=== PATIENT | male | born 1935 | race Caucasian/White ===

== ENCOUNTER 2017-11-22 09:23 | Emergency (ER) | payer MEDICARE ==
[~2017-11-22] VITALS: Ht 182.9 cm; Wt 83.9 kg
[~2017-11-22 09:23] MED LIST: ASPI81CH PO; ATOR20 PO; ATOR40TA PO; CEPH500 PO; Coumadin4 MG PO; FURO40 PO; HYDACE5325 PO; HYDR1TAB94 PO; ISOMON20 PO; LISI20 PO; Lopressor 25 mg25 MG PO; METO25 PO; METO25ER PO; MULVITMIND PO; NABU750 PO; NITR.4SL SL; TAMS.4ER PO; WARF2 PO; WARF4 PO; XARELTO20 MG PO; ZESTRIL40 MG PO
[2017-11-22 10:30] LABS: BASOPHILS ABSOLUTE AUTO 0.05 K/mm3 (0.00-0.23); BASOPHILS PERCENT AUTO 1 % (0-2); EOSINOPHILS ABSOLUTE AUTO 0.32 K/mm3 (0.00-0.68); EOSINOPHILS PERCENT AUTO 4 % (0-6); IMMATURE GRAN ABSOLUTE AUTO 0.03 K/mm3 (0.00-0.10); IMMATURE GRAN PERCENT AUTO 0 % (0-1); LYMPHOCYTES ABSOLUTE AUTO 1.04 K/mm3 (0.84-5.20); LYMPHOCYTES PERCENT AUTO 11 % (21-46); MONOCYTES ABSOLUTE AUTO 0.67 K/mm3 (0.16-1.47); MONOCYTES PERCENT AUTO 7 % (4-13); Mean Corpuscular HGB 30.9 pg (26.0-34.0); Mean Corpuscular HGB Conc 33.3 g/dL (31.5-36.5); Mean Corpuscular Volume 93 fL (80-100); Mean Platelet Volume 10.1 fL (9.1-12.4); NEUTROPHILS ABSOLUTE AUTO 7.09 K/mm3 (1.96-9.15); NEUTROPHILS PERCENT AUTO 77 % (41-73); Platelet Count 185 K/mm3 (150-400); RDW Coefficient Variation 14.7 % (11.7-14.2); RDW Standard Deviation 49.4 fL (35.1-46.3); Red Blood Cell Count 4.53 M/mm3 (4.30-5.90)
[2017-11-22 10:51] LABS: Alanine Aminotransfer (ALT/SGP 27 U/L (12-78); Albumin, Blood 3.5 g/dL (3.4-5.0); Albumin/Globulin Ratio 0.8 (0.8-1.8); Alk Phos 90 U/L (50-136); Anion Gap 7 mmol/L (6-16); Aspartate Aminotrans (AST/SGOT 24 U/L (12-37); Bilirubin, Total 1.5 mg/dL (0.1-1.0); Blood Urea Nitrogen 20 mg/dL (8-24); Bun/Creatinine Ratio 19.8 (12.0-20.0); CO2, Blood 25 mmol/L (21-32); Calcium, Blood 8.5 mg/dL (8.5-10.1); Chloride, Blood 107 mmol/L (98-108); Creatinine, Blood 1.01 mg/dL (0.60-1.20); Globulin, Blood 4.4 g/dL (2.2-4.0); Glomerular Filtration Rate >60 (60-); Glucose, Blood 104 mg/dL (70-99); Potassium, Blood 3.9 mmol/L (3.5-5.5); Sodium, Blood 139 mmol/L (136-145); Total Protein, Blood 7.9 g/dL (6.4-8.2); Troponin I 0.027 ng/mL (0.000-0.040)
[2017-11-22] MEDS ORDERED: K-Dur10 MEQ PO (13:12)
[2017-11-22] MEDS ORDERED: Lasix40 MG PO (13:12)
[2018-08-02] MEDS ORDERED: Lasix20 MG PO (20:37)
[2018-08-02] MEDS ORDERED: K-Dur10 MEQ PO (20:37)
[2018-08-22] MEDS ORDERED: FURO40 PO (14:59)
[2018-08-22] MEDS ORDERED: DOCU100 PO (15:00)
[2018-08-22] MEDS ORDERED: ATOR40TA PO (15:01)
[2018-08-22] MEDS ORDERED: NABU750 PO (15:01)
== END 2017-11-22 13:21 | disposition home or self-care (01) ==
LOC: ER 09:23
PROVIDERS: Emergency Medicine
DX: I11.0 Hypertensive heart disease with heart failure (principal); I50.9 Heart failure, unspecified; E78.00 Pure hypercholesterolemia, unspecified; Z96.653 Presence of artificial knee joint, bilateral; Z95.0 Presence of cardiac pacemaker; Z95.1 Presence of aortocoronary bypass graft; Z79.82 Long term (current) use of aspirin; Z79.899 Other long term (current) drug therapy
CPT/HCPCS: 36415; 71046; 80053; 83605; 83880; 84484; 85025; 93005; 93010; 96374; 99284; J1940

== ENCOUNTER 2018-03-04 09:23 | Observation (INO) | payer MEDICARE ==
[~2018-03-04] VITALS: Ht 177.8 cm; Wt 87.0 kg
[~2018-03-04 09:23] MED LIST changes: +K-Dur10 MEQ PO; +Lasix40 MG PO
[2018-03-04 11:04] LABS: Alanine Aminotransfer (ALT/SGP 25 U/L (12-78); Albumin, Blood 3.7 g/dL (3.4-5.0); Albumin/Globulin Ratio 0.9 (0.8-1.8); Alk Phos 121 U/L (50-136); Anion Gap 9 mmol/L (6-16); Aspartate Aminotrans (AST/SGOT 30 U/L (12-37); Bilirubin, Total 2.4 mg/dL (0.1-1.0); Blood Urea Nitrogen 30 mg/dL (8-24); CO2, Blood 21 mmol/L (21-32); Calcium, Blood 8.5 mg/dL (8.5-10.1); Chloride, Blood 111 mmol/L (98-108); Creatinine, Blood 1.11 mg/dL (0.60-1.20); Globulin, Blood 4.2 g/dL (2.2-4.0); Glomerular Filtration Rate >60 (60-); Glucose, Blood 106 mg/dL (70-99); Potassium, Blood 4.9 mmol/L (3.5-5.5); Sodium, Blood 141 mmol/L (136-145); Total Protein, Blood 7.9 g/dL (6.4-8.2); Troponin I 0.027 ng/mL (0.000-0.040)
[2018-03-04 11:07] LABS: BASOPHILS ABSOLUTE AUTO 0.04 K/mm3 (0.00-0.23); BASOPHILS PERCENT AUTO 1 % (0-2); EOSINOPHILS ABSOLUTE AUTO 0.15 K/mm3 (0.00-0.68); EOSINOPHILS PERCENT AUTO 2 % (0-6); Hematocrit 42.5 % (37.0-53.0); Hemoglobin 13.8 g/dL (13.5-17.5); IMMATURE GRAN ABSOLUTE AUTO 0.03 K/mm3 (0.00-0.10); IMMATURE GRAN PERCENT AUTO 0 % (0-1); LYMPHOCYTES ABSOLUTE AUTO 1.43 K/mm3 (0.84-5.20); LYMPHOCYTES PERCENT AUTO 17 % (21-46); MONOCYTES ABSOLUTE AUTO 0.75 K/mm3 (0.16-1.47); MONOCYTES PERCENT AUTO 9 % (4-13); Mean Corpuscular HGB 30.5 pg (26.0-34.0); Mean Corpuscular HGB Conc 32.5 g/dL (31.5-36.5); Mean Corpuscular Volume 94 fL (80-100); Mean Platelet Volume 10.7 fL (9.1-12.4); NEUTROPHILS ABSOLUTE AUTO 6.26 K/mm3 (1.96-9.15); NEUTROPHILS PERCENT AUTO 72 % (41-73); Platelet Count 130 K/mm3 (150-400); RDW Coefficient Variation 15.7 % (11.7-14.2); RDW Standard Deviation 54.2 fL (35.1-46.3); Red Blood Cell Count 4.52 M/mm3 (4.30-5.90); White Blood Cell Count 8.66 K/mm3 (4.00-11.30)
[2018-03-04] MEDS ORDERED: NABU750 PO (12:59)
[2018-03-04] MEDS ORDERED: TAMS.4ER PO (13:00)
[2018-03-04] MEDS ORDERED: XARELTO15 MG PO (13:00)
[2018-03-05 06:11] LABS: Anion Gap 9 mmol/L (6-16); Blood Urea Nitrogen 30 mg/dL (8-24); Bun/Creatinine Ratio 26.1 (12.0-20.0); CO2, Blood 25 mmol/L (21-32); Calcium, Blood 8.5 mg/dL (8.5-10.1); Chloride, Blood 106 mmol/L (98-108); Creatinine, Blood 1.15 mg/dL (0.60-1.20); Glomerular Filtration Rate >60 (60-); Glucose, Blood 97 mg/dL (70-99); Potassium, Blood 4.1 mmol/L (3.5-5.5); Sodium, Blood 140 mmol/L (136-145)
[2018-03-06 05:06] LABS: Albumin, Blood 3.3 g/dL (3.4-5.0); Anion Gap 11 mmol/L (6-16); Blood Urea Nitrogen 30 mg/dL (8-24); Bun/Creatinine Ratio 27.5 (12.0-20.0); CO2, Blood 24 mmol/L (21-32); Calcium, Blood 8.6 mg/dL (8.5-10.1); Chloride, Blood 105 mmol/L (98-108); Creatinine, Blood 1.09 mg/dL (0.60-1.20); Glomerular Filtration Rate >60 (60-); Glucose, Blood 102 mg/dL (70-99); Phosphorus, Blood 3.5 mg/dL (2.5-4.9); Potassium, Blood 4.1 mmol/L (3.5-5.5); Sodium, Blood 140 mmol/L (136-145)
[2018-03-06] MEDS ORDERED: TORSE20 PO (11:21)
[2018-03-06] MEDS ORDERED: METO25 PO (11:22)
[2018-03-06] MEDS ORDERED: SPIR25 PO (11:23)
[2018-03-06] MEDS ORDERED: TRAM50 PO (11:24)
== END 2018-03-06 13:54 | disposition home or self-care (01) ==
LOC: ER 09:23 → ERHOLD 09:24 → MEDS 09:24 → ENPENDDIS 03-06 10:31 → MEDS 03-06 13:54
PROVIDERS: Emergency Medicine; Internal Medicine
DX: I11.0 Hypertensive heart disease with heart failure (principal); I50.33 Acute on chronic diastolic (congestive) heart failure; I42.2 Other hypertrophic cardiomyopathy; I25.10 Atherosclerotic heart disease of native coronary artery without angina pectoris; E78.5 Hyperlipidemia, unspecified; M19.90 Unspecified osteoarthritis, unspecified site; K21.9 Gastro-esophageal reflux disease without esophagitis; E78.00 Pure hypercholesterolemia, unspecified; Z95.1 Presence of aortocoronary bypass graft; Z79.82 Long term (current) use of aspirin; Z79.899 Other long term (current) drug therapy; Z95.0 Presence of cardiac pacemaker
CPT/HCPCS: 36415; 71046; 80048; 80053; 80069; 83880; 84484; 85025; 93005; 93010; 96374; 99285; G0378; J1940

== ENCOUNTER 2018-09-04 09:45 | Day surgery (SDC) | payer MEDICARE ==
[~2018-09-04] VITALS: Ht 177.8 cm; Wt 76.4 kg
[~2018-09-04 09:45] MED LIST changes: +DOCU100 PO; +Lasix20 MG PO; +SPIR25 PO; +TORSE20 PO; +TRAM50 PO; +XARELTO15 MG PO
== END 2018-09-04 12:20 | disposition home or self-care (01) ==
LOC: ORSCSDS 09:45
PROVIDERS: Internal Medicine Gastroenterology
PROC: 0DBK8ZX Excision of Ascending Colon, Via Natural or Artificial Opening Endoscopic, Diagnostic (ICD-10-PCS; principal; 2018-09-04 11:00)
PROC: 0DBL8ZX Excision of Transverse Colon, Via Natural or Artificial Opening Endoscopic, Diagnostic (ICD-10-PCS; principal; 2018-09-04 11:00)
DX: Z12.11 Encounter for screening for malignant neoplasm of colon (principal); D12.2 Benign neoplasm of ascending colon; D12.3 Benign neoplasm of transverse colon; Z86.010 Personal history of colon polyps; K57.30 Diverticulosis of large intestine without perforation or abscess without bleeding; Z95.0 Presence of cardiac pacemaker; E78.00 Pure hypercholesterolemia, unspecified; I10 Essential (primary) hypertension; Z79.01 Long term (current) use of anticoagulants; Z79.82 Long term (current) use of aspirin; Z79.899 Other long term (current) drug therapy
CPT/HCPCS: 88305; J7120

== ENCOUNTER 2018-11-05 11:05 | Inpatient (IN) | payer MEDICARE ==
[~2018-11-05] VITALS: Ht 180.3 cm; Wt 82.2 kg
[~2018-11-05 11:05] MED LIST changes: +Daily Multiple1 EACH PO
[2018-11-05 11:45] LABS: PCO2 Arterial 31.4 mmHg (35-45); PO2 Arterial 68.4 mmHg (80-100); pH Blood Arterial 7.47 (7.35-7.45)
[2018-11-05 11:47] LABS: BASOPHILS ABSOLUTE AUTO 0.07 K/mm3 (0.00-0.23); BASOPHILS PERCENT AUTO 1 % (0-2); EOSINOPHILS PERCENT AUTO 3 % (0-6); Hematocrit 40.5 % (37.0-53.0); Hemoglobin 13.5 g/dL (13.5-17.5); IMMATURE GRAN ABSOLUTE AUTO 0.03 K/mm3 (0.00-0.10); IMMATURE GRAN PERCENT AUTO 0 % (0-1); LYMPHOCYTES ABSOLUTE AUTO 0.91 K/mm3 (0.84-5.20); LYMPHOCYTES PERCENT AUTO 10 % (21-46); MONOCYTES ABSOLUTE AUTO 0.61 K/mm3 (0.16-1.47); MONOCYTES PERCENT AUTO 6 % (4-13); Mean Corpuscular HGB 31.1 pg (26.0-34.0); Mean Corpuscular HGB Conc 33.3 g/dL (31.5-36.5); Mean Corpuscular Volume 93 fL (80-100); Mean Platelet Volume 9.7 fL (9.1-12.4); NEUTROPHILS ABSOLUTE AUTO 7.62 K/mm3 (1.96-9.15); NEUTROPHILS PERCENT AUTO 80 % (41-73); Platelet Count 176 K/mm3 (150-400); RDW Coefficient Variation 14.7 % (11.7-14.2); RDW Standard Deviation 50.1 fL (35.1-46.3); Red Blood Cell Count 4.34 M/mm3 (4.30-5.90); White Blood Cell Count 9.54 K/mm3 (4.00-11.30)
[2018-11-05 12:10] LABS: Alanine Aminotransfer (ALT/SGP 20 U/L (12-78); Albumin, Blood 3.5 g/dL (3.4-5.0); Albumin/Globulin Ratio 0.9 (0.8-1.8); Alk Phos 138 U/L (50-136); Anion Gap 7 mmol/L (6-16); Aspartate Aminotrans (AST/SGOT 23 U/L (12-37); Blood Urea Nitrogen 22 mg/dL (8-24); Bun/Creatinine Ratio 23.7 (12.0-20.0); CO2, Blood 26 mmol/L (21-32); Calcium, Blood 8.7 mg/dL (8.5-10.1); Chloride, Blood 108 mmol/L (98-108); Creatinine, Blood 0.93 mg/dL (0.60-1.20); Globulin, Blood 3.9 g/dL (2.2-4.0); Glomerular Filtration Rate >60 (60-); Glucose, Blood 106 mg/dL (70-99); Potassium, Blood 4.2 mmol/L (3.5-5.5); Sodium, Blood 141 mmol/L (136-145); Total Protein, Blood 7.4 g/dL (6.4-8.2); Troponin I 0.037 ng/mL (0.000-0.040)
[2018-11-05] MEDS ORDERED: K-Dur10 MEQ PO (13:09)
[2018-11-05] MEDS ORDERED: Lasix20 MG PO (13:09)
--- NOTE | 2018-11-05 18:54 | NUR ---
ADMITTING TO RM 329 FROM THE ER. HE IS A LITTLE SOB WITH ACTIVITY. NO CP. MILD UPPER ABD PAIN. HAD SURGERY 2 WEEKS AGO TO PUT BACK HIS COLOSTOMY. INCISION HEALING WELL WITH 2 STERI STRIPS LEFT. HE HAD A BM TODAY DOWN IN ER. IT WAS SOFT. AM TROP NEGATIVE. CONSULT JUST CALLED TO .
--- NOTE | 2018-11-06 04:59 | NUR ---
SHIFT SUMMARY THE PATIENT PRESENTED THIS SHIFT WITH LUNGS THAT WERE DIM AT THE BASES, A&O X4, AND WITH VITALS WNL. THE PATIENT IS ON TELE AND IS 100% PACED AT 60 BPM. THE PATIENT HAS NOT SLEPT MUCH TONIGHT. MOVING FROM BED TO CHAIR AND BACK AGAIN. THE PATIENT HAS BEEN NPO SINCE MIDNIGHT PRE DR. ANAM VILLAGOMEZ, FOR A POSSIBLE PROCEDURE IN THE MORNING. THE PATIENT COMPLAINED OF SOB, WITH NORMAL STATURATION, BUT HAD 2 LITERS OF O2 VIA N/C PUT ON FOR COMFORT. THE PATIENT IS TRYING TO SLEEP AT THIS TOME, WILL CONTINUE TO MONITOR.
[2018-11-06 06:05] LABS: Anion Gap 9 mmol/L (6-16); Blood Urea Nitrogen 25 mg/dL (8-24); Bun/Creatinine Ratio 25.1 (12.0-20.0); CO2, Blood 23 mmol/L (21-32); Calcium, Blood 8.9 mg/dL (8.5-10.1); Chloride, Blood 107 mmol/L (98-108); Glomerular Filtration Rate >60 (60-); Glucose, Blood 102 mg/dL (70-99); Sodium, Blood 139 mmol/L (136-145)
--- NOTE | 2018-11-06 07:07 | NUR ---
ASSUMED CARE: PT SITTING UPRIGHT AT SIDE OF THE BED. ASKING WHEN ANGIO IS SUPPOSED TO BE. CALL TO HEART CENTER. NOT ON SCHEDULE AT THIS TIME. STAFF IN HEART CENTER TO DETERMINE FURTHER AND GET BACK TO ME. NO FURTHER NEEDS OR CONCERNS AT THIS TIME
--- NOTE | 2018-11-06 10:17 | NUR ---
PT'S DAUGHTER HAS BEEN NOTIFIED THAT PROCEDURE WILL BE TODAY BUT UNSURE ON TIME YET. CALL TO HEART CENTER IN ATTEMPT TO GET TIME BUT NO RESPONSE OF YET
--- NOTE | 2018-11-06 10:47 | NUR ---
PT TAKEN TO INFRASTRUCTURE ENGINEER. CALL TO DAUGHTER TO MAKE HER AWARE. HOUSEKEEPING TOOK PT'S BELONGINGS TO INFRASTRUCTURE ENGINEER. WAITING TO HEAR ROOM PLACEMENT TO GIVE REPORT TO CRITICAL CARE NURSE.
--- NOTE | 2018-11-06 12:35 | NUR ---
REPORT CALLED TO QING RN. PT'S DAUGHTER AWARE OF PT BEING TRANSFERRED TO ROOM PCU 12.
--- NOTE | 2018-11-06 13:25 | NUR ---
PT IN RECOVERY AT HEART CENTER, AWAITING ICU BED. PT WITH SHEATH IN PLACE TO RIGHT GROIN. SURROUNDING AREA SOFT, NO BLEEDING OR SWELLING NOTED. RIGHT LEG PWD. NITRO GTTS INFUSING AT ORDERED RATE. PT TOLERATING WELL. B/P REMAINS ELEVATED IN 150'S SYSTOLIC. DAUGHTER AT BEDSIDE AT THIS TIME.
--- NOTE | 2018-11-06 14:48 | NUR ---
PT HAS VOIDED MULTIPLE TIMES WITHOUT DIFFICULTY. AWAITING SHEATH PULL. MD IN TO REVIEW CHART.
--- NOTE | 2018-11-06 16:10 | NUR ---
ARRIVAL TO ICU 1540 - PT ARRIVES TO ICU AT THIS TIME. HE IS A/O X3, DENIES PAIN. R GROIN SITE IS CLEAN AND DRY WITH DRY AND INTACT DRESSING. NO SURROUNDING HEMATOMA. PT EDUCATED ON NEED TO KEEP R LEG STRAIGHT AND HOLD PRESSURE IF HE NEEDS TO RAISE HEAD. PEDAL PULSES PALPABLE. ARRIVES WITH NITROGLYCERIN GTT INFUSING AT 40 MCG AND TITRATING DOWN. BP 142/69. FAMILY BEDSIDE. WILL CONTINUE TO MONTIOR.
--- NOTE | 2018-11-06 17:39 | NUR ---
SHIFT SUMMARY 1540 - PT ARRIVED FROM [facility]ART [facility]. R GROIN SITE REMAINS CLEAN AND DRY WITH NO OOZING OR HEMATOMA. PT HAS REMAINED FLAT SINCE ARRIVAL AND WILL REMAIN FLAT UNTIL 1929. TYLENOL PO GIVEN FOR C/O BACK PAIN. ATE FINGER FOODS WITHOUT DIFFICULTY. 1739 - NITRO GTT TURNED OFF AT THIS TIME. CYNDIE 120S/60S. WILL CONTINUE TO MONITOR. WILL GIVE BEDSIDE, HANDOFF REPORT TO NOC RN.
--- NOTE | 2018-11-06 20:00 | NUR ---
DURING SHIFT HANDOFF, PT CALLED, CO "HAVING ANOTHER ONE OF THOSE SPELLS" AND REQUESTED O2. SATS NOTED 97% ON RA. HOB IS SL ELEVATED. O2 PLACED FOR PT COMFORT & WILL CONT TO MONITOR. DENIES PAIN. R GROIN SITE CONT SOFT, NO BLEEDING, DRSG CDI. FEET WARM, PPP. WILL CONT TO MONITOR SITE ALSO.
--- NOTE | 2018-11-06 22:30 | NUR ---
DANGLED AT BEDSIDE & THEN STANDING W MIMIMAL ASSIST. R GROIN CONT STABLE. REQUESTED ASSIST FOR BM, NO STOOL, PASSING FLATUS. NO SOB W EXERTION. REQUESTING MED FOR SLEEP. DISCUSSED PLAN FOR CARDIAC STRESS TESTING IN AM. PT REFERS TO FAMILY W LOVING TERMS, STATES HIS HAS BEEN IN HOSPICE CARE.
--- NOTE | 2018-11-07 | NUR ---
MED W RESTORIL 7.5MG FOR SLEEP, HAS CONT TO VOID SM AMTS OF MORENO URINE. R GROIN SITE CONT STABLE. VSS. PT HAD SNACK W EVENING MEDS, NPO NOW W SIPS WATER FOR ORAL COMFORT. WILL CONT TO MONITOR.
--- NOTE | 2018-11-07 04:00 | NUR ---
PT HAS BEEN UP SEVERAL TIMES TO BSC USING WALKER & SB ASSIST. PT IS HAVING LIQUID BILEOUS STOOL, ORANGE/WALKER COLOR. POSS RX FROM [facility]?? NO OTHER CHANGES.
--- NOTE | 2018-11-07 06:00 | NUR ---
CONT TO HAVE FLATUS & LIQUID STOOL. PT IS TIRED, BUT NO CO SOB OR EXERTION NOTED WHEN UP TO BSC. NOT WANTING O2 PER NC, SATS MID 90'S. CONT PACED RHYTHM W UNDERLYING FLUTTER. R GROIN CONT STABLE. HAS BEEN USING CALL LIGHT APPROPRIATELY.
[2018-11-07 06:59] LABS: BASOPHILS ABSOLUTE AUTO 0.03 K/mm3 (0.00-0.23); BASOPHILS PERCENT AUTO 0 % (0-2); EOSINOPHILS PERCENT AUTO 4 % (0-6); Hematocrit 45.4 % (37.0-53.0); Hemoglobin 14.8 g/dL (13.5-17.5); IMMATURE GRAN ABSOLUTE AUTO 0.04 K/mm3 (0.00-0.10); IMMATURE GRAN PERCENT AUTO 0 % (0-1); LYMPHOCYTES ABSOLUTE AUTO 0.19 K/mm3 (0.84-5.20); LYMPHOCYTES PERCENT AUTO 2 % (21-46); MONOCYTES ABSOLUTE AUTO 0.44 K/mm3 (0.16-1.47); MONOCYTES PERCENT AUTO 4 % (4-13); Mean Corpuscular HGB 30.7 pg (26.0-34.0); Mean Corpuscular HGB Conc 32.6 g/dL (31.5-36.5); Mean Corpuscular Volume 94 fL (80-100); Mean Platelet Volume 9.8 fL (9.1-12.4); NEUTROPHILS ABSOLUTE AUTO 9.59 K/mm3 (1.96-9.15); NEUTROPHILS PERCENT AUTO 90 % (41-73); Platelet Count 174 K/mm3 (150-400); RDW Standard Deviation 51.7 fL (35.1-46.3); Red Blood Cell Count 4.82 M/mm3 (4.30-5.90); White Blood Cell Count 10.69 K/mm3 (4.00-11.30)
[2018-11-07 07:19] LABS: Anion Gap 9 mmol/L (6-16); Blood Urea Nitrogen 27 mg/dL (8-24); CO2, Blood 24 mmol/L (21-32); Calcium, Blood 8.6 mg/dL (8.5-10.1); Chloride, Blood 108 mmol/L (98-108); Glomerular Filtration Rate >60 (60-); Glucose, Blood 118 mg/dL (70-99); Potassium, Blood 3.8 mmol/L (3.5-5.5); Sodium, Blood 141 mmol/L (136-145)
--- NOTE | 2018-11-07 07:43 | NUR ---
CARE ASSUMED CARE AND REPORT ASSUMED FROM STERLING NARAYAN. PT AWAKE AND UP TO BEDSIDE COMMODE. NOC RN STATES PT HAS BEEN UP MULTIPLE TIMES DURING NIGHT WITH DIARRHEA. STOOL IS PINK AND LIQUID; MD RAMIREZ AWARE. VSS. PACED RHYTHM, HR 60S. IV SALINE LOCKED. PT NPO EXCEPT FEW ICE CHIPS. CALL LIGHT WITHIN REACH. WILL CONTINUE TO MONITOR.
--- NOTE | 2018-11-07 18:46 | NUR ---
SHIFT SUMMARY/TRANSFER 1800 - PT SUDDENLY HAD EPISODE OF VOMITING WHILE EATING DINNER. DENIED ABD PAIN, DENIED NAUSEA. MD RAMIREZ CALLED, T. O. FOR ZOFRAN AND ABDOMINAL CT. PT THEN HAD EPISODE OF DIARRHEA. ATTEMPTED TO ARRANGE CT SCAN BUT NO AVAILIBILITY UNTIL 1900. PT TAKEN TO PCU AND BEDSIDE REPORT GIVEN TO HAZEL JOY. VSS ENTIRE SHIFT. PT TOLERATED LEXISCAN THIS AM AND INTO EARLY AFTERNOON.
--- NOTE | 2018-11-07 19:45 | NUR ---
ASSUMED CARE PT SITTING IN ROOM COMFORTBLY. PER DAY SHIFT PT ARRIVED AT SHIFT CHANGE REPORT TAKEN FROM ICU. PT HAD ANIGO ON 11/06 W/ R FEMORAL SITE. SITE IS SOFT NO OOZING NOTED TO AREA. SOME OLD DRIED BLOOD TO DRESSING. PT REPORTS TIRED, AND HAVING DIARRHEA SINCE YESTERDAY. PT REPORTS BACKSIDE IS VERY SORE FROM CONTINUOUS DIARRHEA. PT HAD A RECENT OSTOMY TAKE DOWN IN EXETER ON 10/17. SITE NOTED TO L ABD HEALING WELL W/ STERI STRIPS IN PLACE. RESP EVEN UNLABORED ON RA. SATS >92%. PT IS SBA TO RR AMB W/ 4WW. CALL LIT IN REACH.
--- NOTE | 2018-11-08 00:37 | NUR ---
DIARRHEA PT CONTINUES TO HAVE DIARRHEA AND IS C/O BLOOD TO ANUS. PINK CREAM APPLIED TO AREA FOR COMFORT. PROVIDER TO BE CALLED FOR MEDICATION FOR DIARRHEA.
[2018-11-08 04:03] LABS: Hematocrit 40.1 % (37.0-53.0); Hemoglobin 13.3 g/dL (13.5-17.5); Mean Corpuscular HGB 31.2 pg (26.0-34.0); Mean Corpuscular HGB Conc 33.2 g/dL (31.5-36.5); Mean Corpuscular Volume 94 fL (80-100); Mean Platelet Volume 9.9 fL (9.1-12.4); Platelet Count 155 K/mm3 (150-400); RDW Coefficient Variation 15.4 % (11.7-14.2); Red Blood Cell Count 4.26 M/mm3 (4.30-5.90); White Blood Cell Count 6.29 K/mm3 (4.00-11.30)
[2018-11-08 04:29] LABS: Anion Gap 9 mmol/L (6-16); Blood Urea Nitrogen 23 mg/dL (8-24); Bun/Creatinine Ratio 23.8 (12.0-20.0); CO2, Blood 20 mmol/L (21-32); Calcium, Blood 8.4 mg/dL (8.5-10.1); Chloride, Blood 111 mmol/L (98-108); Creatinine, Blood 0.97 mg/dL (0.60-1.20); Glomerular Filtration Rate >60 (60-); Glucose, Blood 115 mg/dL (70-99); Potassium, Blood 3.5 mmol/L (3.5-5.5); Sodium, Blood 140 mmol/L (136-145)
--- NOTE | 2018-11-08 05:54 | NUR ---
SHIFT SUMMARY PT SLEEPING IN ROOM COMFORTABLY. NO ACUTE CHANGES IN STATUS T/O NIGHT. PT REPORTS STILL HAVING DIARRHEA. PT HAS A RECENT COLOSTOMY REVERSAL ON 10/17. RESP EVEN UNLABORED ON RA W/ SATS >92%. PT ABLE TO AMBULATE IN ROOM W/ SBA AND 4WW. CALLS APPROPRIATELY.
--- NOTE | 2018-11-08 12:46 | NUR ---
Echocardiogram completed.
--- NOTE | 2018-11-08 17:56 | NUR ---
SHIFT SUMMARY PT ALERT AND ORIENTED. VS STABLE. PT HAD ECHO DONE TODAY. PT ABLE TO AMBULATE TO BATHROOM WITH FWW AND SBA. PT HAD MULTIPLE EPISODES OF LIQUID BM. PT'S BUTTOCKS IS RED WITH SMALL TEARS FROM WIPING. CREAM APPLIED TO SKIN AND DR RAMIREZ NOTIFIED. NEW ORDERS PROVIDED. FEMORAL SITE COVERED WITH DRESSING C/D/I. NO SIGNS/SYMPTOMS OF HEMATOMA OR BLEEDING. PT DENIES ANY PAIN. NO OTHER CHANGES SINCE INITIAL ASSESSMENT. WILL CONTINUE TO MONITOR AND REPORT TO ONCOMING RN. CALL LIGHT IN REACH.
--- NOTE | 2018-11-08 22:43 | NUR ---
PCU NIGHTSHIFT ASSUMED CARE OF PT APPROX. 1900. PT A&OX4. ASSESSMENT COMPLETED, VITAL SIGNS STABLE. PT UP IN CHAIR AT THIS TIME. PT REPORTS THAT DIAHREA HAS CONTINUED THROUGHOUT THE DAY AND WOULD LIKE TO CONTINUE TAKING IMMODIUM PER EMAR. PT ABLE TO USE FWW AND AMBULATE TO BATHROOM NEEDED W/ SBA. PT 100% PACED AT THIS TIME. CALL LIGHT IN REACH AND PT DENIES ANY NEEDS AT THIS TIME. WILL CONTINUE TO MONITOR.
--- NOTE | 2018-11-09 05:55 | NUR ---
SHIFT SUMMARY PT PLEASANT, COOPERATIVE, AND USES CALL LIGHT APPROPRIATELY. PT REMAINS A&OX4. ASSESSMENT FINDINGS REMAIN UNCHANGED. VITAL SIGNS REMAINS STABLE. PT ABLE TO AMBULATE TO BATHROOM WITH FWW AND SBA NEEDED AND TOLERATED WELL. PT HAD SEVERAL EPISODES OF DIAHREA. IMMODIUM GIVEN PER EMAR. BARRIERS CREAM PLACED ON SKIN ON BUTTOCKS TO PROTECT SKIN. PT SPENT SOME OF SHIFT SITTING UP IN CHAIR. PT CURRENLTY IN CHAIR. CALL LIGHT IN REACH AND PT DENIES ANY NEEDS AT THIS TIME. WILL CONTINUE TO MONITOR UNTIL HANDOFF TO DAYSHIFT RN.
[2018-11-09 06:03] LABS: Hematocrit 38.8 % (37.0-53.0); Hemoglobin 12.9 g/dL (13.5-17.5); Mean Corpuscular HGB 31.8 pg (26.0-34.0); Mean Corpuscular HGB Conc 33.2 g/dL (31.5-36.5); Mean Corpuscular Volume 96 fL (80-100); Platelet Count 148 K/mm3 (150-400); RDW Coefficient Variation 15.1 % (11.7-14.2); RDW Standard Deviation 52.6 fL (35.1-46.3); Red Blood Cell Count 4.06 M/mm3 (4.30-5.90); White Blood Cell Count 7.04 K/mm3 (4.00-11.30)
[2018-11-09 06:32] LABS: Anion Gap 8 mmol/L (6-16); Blood Urea Nitrogen 21 mg/dL (8-24); Bun/Creatinine Ratio 25.4 (12.0-20.0); CO2, Blood 19 mmol/L (21-32); Calcium, Blood 7.8 mg/dL (8.5-10.1); Chloride, Blood 111 mmol/L (98-108); Creatinine, Blood 0.83 mg/dL (0.60-1.20); Glomerular Filtration Rate >60 (60-); Glucose, Blood 90 mg/dL (70-99); Potassium, Blood 3.6 mmol/L (3.5-5.5); Sodium, Blood 138 mmol/L (136-145)
--- NOTE | 2018-11-09 10:16 | NUR ---
AM NOTE. ASSUMED CARE OF PT APROX 0700, PT IS A&Ox4, AND SBA IN THE ROOM. PT WAS ADMITTED DUE TO CHEST PAIN. PT IS S/P ANGIO W/NO INTERVENTIONS. PT DENIES ANY CHEST PAIN AT THIS TIME. CARDIOLOGY PROVIDER AND HOSPITAL PROVIDER IN THE ROOM THIS AM, PT IS TO D/C HOME TODAY. TELE INTACT, 100% PACED, PT'S BP 117/63, PT HAS 1+ EDEMA TO HIS BLE. PT L/S CLEAR T/O. BT PRESENT AND HYPERACTIVE, PT HAS COMPLAINTS OF DIARRHEA BUT STATES THIS HAS IMPROVED, PT WAS GIVEN PRN IMMODIUM. ABD IS SOFT AND NONTENDER TO PALP. CALL LIGHT IN REACH, PT IS UP IN RECLINER CHAIR AT THIS TIME. WILL CONTINUE TO MONITOR.
[2018-11-09] MEDS ORDERED: AMLO5 PO (10:28)
[2018-11-09] MEDS ORDERED: FURO20 PO (10:29)
[2018-11-09] MEDS ORDERED: LOPE2C PO (10:30)
[2018-11-09] MEDS ORDERED: KONSYL PSYLLIU3.4 GM PO (10:32)
[2018-11-09] MEDS ORDERED: SACC250C PO (10:32)
[2018-11-09] MEDS ORDERED: XARELTO20 MG PO (10:33)
--- NOTE | 2018-11-09 13:03 | NUR ---
PT D/C. PT WAS D/C'D HOME W/ALL BELONGINGS. D/C EDUCATION WAS PROVIDED TO PT AND FAMILY, PT AND FAMILY DENY ANY FURTHER QUESTIONS/COMMENTS OR CONCERNS. IV WAS D/C'D WNL. PT WAS TAKEN OUT IN W/C. MEDICATIONS WERE CALLED TO PT'S PHARMACY OF CHOICE. PT WAS GIVEN FOLLOW UP DIRECTIONS FOR HIS PCP AND CARDIOLOGY.
== END 2018-11-09 13:10 | disposition home or self-care (01) | DRG 281 ==
LOC: ER 11:05 → MEDS 11:06 → ERHOLD 11:06 → MEDS 17:42 → ICUW 11-06 13:02 → PCU 11-06 13:21 → ICUW 11-06 15:40 → PCU 11-07 18:43
PROVIDERS: Emergency Medicine; Internal Medicine; Internal Medicine Cardiovascular Disease; ADMIT Hospitalist
PROC: 4A023N7 Measurement of Cardiac Sampling and Pressure, Left Heart, Percutaneous Approach (ICD-10-PCS; principal; 2018-11-06)
PROC: B211YZZ Fluoroscopy of Multiple Coronary Arteries using Other Contrast (ICD-10-PCS; 2018-11-06)
DX: I25.10 Atherosclerotic heart disease of native coronary artery without angina pectoris (principal); I21.9 Acute myocardial infarction, unspecified; I50.32 Chronic diastolic (congestive) heart failure; K62.5 Hemorrhage of anus and rectum; I11.0 Hypertensive heart disease with heart failure; I48.2 Chronic atrial fibrillation; R19.7 Diarrhea, unspecified; I27.20 Pulmonary hypertension, unspecified; Z79.82 Long term (current) use of aspirin; Z95.0 Presence of cardiac pacemaker; Z95.5 Presence of coronary angioplasty implant and graft; Z96.653 Presence of artificial knee joint, bilateral
CPT/HCPCS: 36415; 36600; 71045; 74176; 78452; 80048; 80053; 82375; 82803; 83880; 84484; 85025; 85027; 87493; 93005; 93010; 93017; 93308; 93321; 93457; 99152; 99153; 99285-25; A9500; C1769; G0378; J0360; J0706; J1644; J1650; J1940; J2250; J2405; J2785; J3010; J7030; J7040; Q9967

== ENCOUNTER 2019-03-26 10:06 | Emergency (ER) | payer MEDICARE ==
[~2019-03-26] VITALS: Ht 180.3 cm; Wt 77.1 kg
[~2019-03-26 10:06] MED LIST changes: +AMLO5 PO; +FURO20 PO; +KONSYL PSYLLIU3.4 GM PO; +LOPE2C PO; +SACC250C PO
[2019-03-26 10:49] LABS: Source, Urine Clean Catch
[2019-03-26 10:53] LABS: Blood, Urine 2+ (Neg); Glucose Qualitative, Urine Neg (Neg); Ketones, Urine Neg (Neg); Leukocyte Esterase, Urine 1+ (Neg); Nitrite, Urine Neg (Neg); Protein, Urine 2+ (Neg); Specific Gravity, Urine 1.025 (1.003-1.022); Urobilinogen, Urine 1+ (Normal)
[2019-03-26 11:13] LABS: BASOPHILS ABSOLUTE AUTO 0.05 K/mm3 (0.00-0.23); BASOPHILS PERCENT AUTO 1 % (0-2); EOSINOPHILS ABSOLUTE AUTO 0.15 K/mm3 (0.00-0.68); EOSINOPHILS PERCENT AUTO 2 % (0-6); Hematocrit 41.4 % (37.0-53.0); Hemoglobin 13.5 g/dL (13.5-17.5); IMMATURE GRAN ABSOLUTE AUTO 0.04 K/mm3 (0.00-0.10); IMMATURE GRAN PERCENT AUTO 1 % (0-1); LYMPHOCYTES ABSOLUTE AUTO 0.94 K/mm3 (0.84-5.20); LYMPHOCYTES PERCENT AUTO 12 % (21-46); MONOCYTES ABSOLUTE AUTO 0.59 K/mm3 (0.16-1.47); MONOCYTES PERCENT AUTO 7 % (4-13); Mean Corpuscular HGB 29.7 pg (26.0-34.0); Mean Corpuscular HGB Conc 32.6 g/dL (31.5-36.5); Mean Corpuscular Volume 91 fL (80-100); Mean Platelet Volume 10.7 fL (9.1-12.4); NEUTROPHILS ABSOLUTE AUTO 6.27 K/mm3 (1.96-9.15); NEUTROPHILS PERCENT AUTO 78 % (41-73); Platelet Count 132 K/mm3 (150-400); RDW Coefficient Variation 15.1 % (11.7-14.2); RDW Standard Deviation 50.1 fL (35.1-46.3); Red Blood Cell Count 4.55 M/mm3 (4.30-5.90); White Blood Cell Count 8.04 K/mm3 (4.00-11.30)
[2019-03-26 11:21] LABS: Appearance, Urine Clear (Clear); Bilirubin, Urine 1+ (Neg); Color, Urine Yellow (P-Yellow)
[2019-03-26 11:22] LABS: Bacteria Many /hpf; Mucus Mod (0-Heavy); Squamous Epithelial Cells Rare /hpf (Few); White Blood Cells, Urine 0-2 /hpf (0-5)
[2019-03-26 11:23] LABS: Amorphous Light (0-Heavy)
[2019-03-26 11:28] LABS: Alanine Aminotransfer (ALT/SGP 16 U/L (12-78); Albumin, Blood 3.2 g/dL (3.4-5.0); Albumin/Globulin Ratio 0.9 (0.8-1.8); Alk Phos 123 U/L (50-136); Anion Gap 7 mmol/L (6-16); Aspartate Aminotrans (AST/SGOT 19 U/L (12-37); Bilirubin, Total 2.1 mg/dL (0.1-1.0); Blood Urea Nitrogen 23 mg/dL (8-24); Bun/Creatinine Ratio 22.1 (12.0-20.0); CO2, Blood 24 mmol/L (21-32); Calcium, Blood 8.1 mg/dL (8.5-10.1); Chloride, Blood 107 mmol/L (98-108); Creatinine, Blood 1.04 mg/dL (0.60-1.20); Globulin, Blood 3.5 g/dL (2.2-4.0); Glomerular Filtration Rate >60 (60-); Glucose, Blood 131 mg/dL (70-99); Potassium, Blood 4.1 mmol/L (3.5-5.5); Sodium, Blood 138 mmol/L (136-145); Total Protein, Blood 6.7 g/dL (6.4-8.2)
[2019-04-08] MEDS ORDERED: METO25 PO (15:23)
[2019-04-08] MEDS ORDERED: TAMS.4ER PO (15:23)
[2019-04-08] MEDS ORDERED: XARELTO20 MG PO (15:23)
[2019-04-08] MEDS ORDERED: FURO20 PO (15:24)
[2019-04-08] MEDS ORDERED: ZESTRIL40 MG PO (15:24)
[2019-04-08] MEDS ORDERED: MULTI VITAMIN1 EACH PO (15:24)
[2019-04-08] MEDS ORDERED: ATOR40TA PO (15:24)
[2019-04-08] MEDS ORDERED: Aspirin EC81 MG PO (15:24)
[2019-04-08] MEDS ORDERED: Colace100 MG PO (15:25)
[2019-04-08] MEDS ORDERED: Amlodipine Bes2.5 MG PO (15:25)
[2019-04-08] MEDS ORDERED: NABU750 PO (15:25)
[2019-04-08] MEDS ORDERED: Klor-Con 1010 MEQ PO (15:25)
[2019-04-08] MEDS ORDERED: Nitrostat0.4 MG SL (15:25)
== END 2019-03-26 12:06 | disposition home or self-care (01) ==
LOC: ER 10:06
PROVIDERS: Emergency Medicine
DX: R10.9 Unspecified abdominal pain (principal); R31.9 Hematuria, unspecified; N39.8 Other specified disorders of urinary system; E78.5 Hyperlipidemia, unspecified; I48.91 Unspecified atrial fibrillation; K21.9 Gastro-esophageal reflux disease without esophagitis; I25.10 Atherosclerotic heart disease of native coronary artery without angina pectoris; M19.90 Unspecified osteoarthritis, unspecified site; N40.0 Benign prostatic hyperplasia without lower urinary tract symptoms; I42.2 Other hypertrophic cardiomyopathy; I50.9 Heart failure, unspecified; I27.20 Pulmonary hypertension, unspecified; Z87.442 Personal history of urinary calculi; Z79.82 Long term (current) use of aspirin; Z79.899 Other long term (current) drug therapy; Z79.01 Long term (current) use of anticoagulants
CPT/HCPCS: 36415; 74176; 80053; 81001; 85025; 87086; 99284-25

== ENCOUNTER 2019-04-05 11:41 | Emergency (ER) | payer MEDICARE ==
[~2019-04-05] VITALS: Ht 182.9 cm; Wt 80.7 kg
[2019-04-05] MEDS ORDERED: ZESTRIL40 MG PO (12:35)
[2019-04-05] MEDS ORDERED: TEMA15 PO (12:35)
[2019-04-05] MEDS ORDERED: CEPH500 PO (13:18)
[2019-04-08] MEDS ORDERED: XARELTO20 MG PO (15:23)
[2019-04-08] MEDS ORDERED: METO25 PO (15:23)
[2019-04-08] MEDS ORDERED: TAMS.4ER PO (15:23)
[2019-04-08] MEDS ORDERED: Aspirin EC81 MG PO (15:24)
[2019-04-08] MEDS ORDERED: ATOR40TA PO (15:24)
[2019-04-08] MEDS ORDERED: MULTI VITAMIN1 EACH PO (15:24)
[2019-04-08] MEDS ORDERED: ZESTRIL40 MG PO (15:24)
[2019-04-08] MEDS ORDERED: FURO20 PO (15:24)
[2019-04-08] MEDS ORDERED: Colace100 MG PO (15:25)
[2019-04-08] MEDS ORDERED: NABU750 PO (15:25)
[2019-04-08] MEDS ORDERED: Amlodipine Bes2.5 MG PO (15:25)
[2019-04-08] MEDS ORDERED: Nitrostat0.4 MG SL (15:25)
[2019-04-08] MEDS ORDERED: Klor-Con 1010 MEQ PO (15:25)
== END 2019-04-05 15:50 | disposition home or self-care (01) ==
LOC: ER 11:41
DX: I48.91 Unspecified atrial fibrillation (principal); R04.0 Epistaxis; D68.9 Coagulation defect, unspecified; N40.0 Benign prostatic hyperplasia without lower urinary tract symptoms; I25.10 Atherosclerotic heart disease of native coronary artery without angina pectoris; E78.5 Hyperlipidemia, unspecified; K21.9 Gastro-esophageal reflux disease without esophagitis; Z95.1 Presence of aortocoronary bypass graft; Z87.891 Personal history of nicotine dependence
CPT/HCPCS: 30903; 99283-25

== ENCOUNTER 2020-01-10 17:27 | Emergency (ER) | payer MEDICARE ==
[~2020-01-10] VITALS: Ht 170.2 cm; Wt 83.5 kg
[~2020-01-10 17:27] MED LIST changes: +Amlodipine Bes2.5 MG PO; +Aspirin EC81 MG PO; +Colace100 MG PO; +Klor-Con 1010 MEQ PO; +MULTI VITAMIN1 EACH PO; +Nitrostat0.4 MG SL; +TEMA15 PO
[2020-01-10 18:20] LABS: BASOPHILS ABSOLUTE AUTO 0.04 K/mm3 (0.00-0.23); BASOPHILS PERCENT AUTO 1 % (0-2); EOSINOPHILS ABSOLUTE AUTO 0.42 K/mm3 (0.00-0.68); EOSINOPHILS PERCENT AUTO 5 % (0-6); Hematocrit 45.7 % (37.0-53.0); Hemoglobin 14.7 g/dL (13.5-17.5); IMMATURE GRAN ABSOLUTE AUTO 0.03 K/mm3 (0.00-0.10); IMMATURE GRAN PERCENT AUTO 0 % (0-1); LYMPHOCYTES ABSOLUTE AUTO 0.89 K/mm3 (0.84-5.20); LYMPHOCYTES PERCENT AUTO 11 % (21-46); MONOCYTES PERCENT AUTO 9 % (4-13); Mean Corpuscular HGB 29.9 pg (26.0-34.0); Mean Corpuscular HGB Conc 32.2 g/dL (31.5-36.5); Mean Corpuscular Volume 93 fL (80-100); Mean Platelet Volume 9.9 fL (9.1-12.4); NEUTROPHILS ABSOLUTE AUTO 5.98 K/mm3 (1.96-9.15); NEUTROPHILS PERCENT AUTO 74 % (41-73); Platelet Count 127 K/mm3 (150-400); RDW Coefficient Variation 16.7 % (11.7-14.2); RDW Standard Deviation 57.1 fL (35.1-46.3); Red Blood Cell Count 4.92 M/mm3 (4.30-5.90); White Blood Cell Count 8.06 K/mm3 (4.00-11.30)
[2020-01-10 18:41] LABS: Anion Gap 7 mmol/L (6-16); Blood Urea Nitrogen 35 mg/dL (8-24); Bun/Creatinine Ratio 37.6 (12.0-20.0); CO2, Blood 21 mmol/L (21-32); Calcium, Blood 8.3 mg/dL (8.5-10.1); Chloride, Blood 109 mmol/L (98-108); Creatinine, Blood 0.93 mg/dL (0.60-1.20); Glomerular Filtration Rate >60 (60-); Glucose, Blood 95 mg/dL (70-99); Potassium, Blood 4.8 mmol/L (3.5-5.5); Sodium, Blood 137 mmol/L (136-145); Troponin I 0.032 ng/mL (0.000-0.040)
== END 2020-01-10 20:43 | disposition home or self-care (01) ==
LOC: ER 17:27
PROVIDERS: Emergency Medicine
DX: I13.0 Hypertensive heart and chronic kidney disease with heart failure and stage 1 through stage 4 chronic kidney disease, or unspecified chronic kidney disease (principal); I50.30 Unspecified diastolic (congestive) heart failure; N18.9 Chronic kidney disease, unspecified; I25.10 Atherosclerotic heart disease of native coronary artery without angina pectoris; I48.91 Unspecified atrial fibrillation; Z79.899 Other long term (current) drug therapy; Z79.82 Long term (current) use of aspirin
CPT/HCPCS: 36415; 71045; 80048; 83880; 84484; 85025; 93005; 93010; 96374; 99285-25; J1940

== ENCOUNTER 2022-09-07 09:48 | Emergency (ER) | payer MEDICARE ==
[~2022-09-07] VITALS: Ht 177.8 cm; Wt 81.7 kg
[~2022-09-07 09:48] MED LIST changes: +CEFD300 PO; +CLOP75 PO; +ENTRESTO 24 MG1 EACH PO; +K-Dur20 MEQ PO; -Klor-Con 1010 MEQ PO; +LISINOPRIL2.5 MG PO; +METOPROLOL SUCC25 MG PO; +NITR100CA PO; -Nitrostat0.4 MG SL; +Norco 5-325 Ta1 EACH PO
[2022-09-07 10:52] LABS: Source, Urine Clean Catch
[2022-09-07 10:55] LABS: Bilirubin, Urine Neg (Neg); Blood, Urine Neg (Neg); Glucose Qualitative, Urine Neg (Neg); Ketones, Urine Neg (Neg); Leukocyte Esterase, Urine Neg (Neg); Nitrite, Urine Neg (Neg); Protein, Urine Neg (Neg); Urobilinogen, Urine NORM (Normal)
[2022-09-07 10:58] LABS: Appearance, Urine Clear (Clear); Color, Urine Yellow (P-Yellow)
[2022-09-07 11:06] LABS: BASOPHILS ABSOLUTE AUTO 0.04 K/mm3 (0.00-0.23); BASOPHILS PERCENT AUTO 0 % (0-2); EOSINOPHILS ABSOLUTE AUTO 0.41 K/mm3 (0.00-0.68); EOSINOPHILS PERCENT AUTO 4 % (0-6); Hematocrit 39.5 % (37.0-53.0); Hemoglobin 13.3 g/dL (13.5-17.5); IMMATURE GRAN ABSOLUTE AUTO 0.05 K/mm3 (0.00-0.10); IMMATURE GRAN PERCENT AUTO 1 % (0-1); LYMPHOCYTES ABSOLUTE AUTO 0.94 K/mm3 (0.84-5.20); LYMPHOCYTES PERCENT AUTO 10 % (21-46); MONOCYTES ABSOLUTE AUTO 0.92 K/mm3 (0.16-1.47); MONOCYTES PERCENT AUTO 9 % (4-13); Mean Corpuscular HGB 31.7 pg (26.0-34.0); Mean Corpuscular HGB Conc 33.7 g/dL (31.5-36.5); Mean Corpuscular Volume 94 fL (80-100); Mean Platelet Volume 9.3 fL (9.1-12.4); NEUTROPHILS ABSOLUTE AUTO 7.52 K/mm3 (1.96-9.15); NEUTROPHILS PERCENT AUTO 76 % (41-73); Platelet Count 183 K/mm3 (150-400); RDW Coefficient Variation 13.9 % (11.7-14.2); RDW Standard Deviation 47.9 fL (35.1-46.3); White Blood Cell Count 9.88 K/mm3 (4.00-11.30)
[2022-09-07 11:18] LABS: Albumin, Blood 2.8 g/dL (3.4-5.0); Albumin/Globulin Ratio 0.6 (0.8-1.8); Bilirubin, Total 1.4 mg/dL (0.1-1.0); Bun/Creatinine Ratio 35.4 (12.0-20.0); Calcium, Blood 8.7 mg/dL (8.5-10.1); Creatinine, Blood 1.78 mg/dL (0.60-1.20); Globulin, Blood 4.7 g/dL (2.2-4.0); Potassium, Blood 5.7 mmol/L (3.5-5.5); Total Protein, Blood 7.5 g/dL (6.4-8.2)
--- NOTE | 2022-09-07 14:05 | NUR ---
Pt in for pain and decreased ability to ambulate. Pt lega red and inflamed from knee down. legs shineya nd wooden. Pt complains of constant deep pain to right foot and deep ankle pain . States taking tylenol only. Pt not sleeping very well and fatigued, he still has a good appetite. denies nausea or constipation. He is cold all the time and feels anxious about not being able to bear weight on his right foot. Pt daughter spoke with pt primary physcian who is calling [facility]. Pt was on [facility] home health and used hospice for his . Spoke with patient about hospice care and what it could offer. Focus on reducing suffering and being in a cycle of ER visits and hosptial visits. Pt not wanting more care. Carefully discused living a comfortable life as long as he can. Pt very amendable encourged his to steer his own ship. If he did not want to stay on hospice nothing set in stone he can always take himself off. He responded will the that particular statement. We reviewed fanancial strategies of getting the care he needs. Will follow up with daughter.
== END 2022-09-07 13:58 | disposition home or self-care (01) ==
LOC: ER 09:48
PROVIDERS: Physician Assistant
DX: I83.018 Varicose veins of right lower extremity with ulcer other part of lower leg (principal); I83.028 Varicose veins of left lower extremity with ulcer other part of lower leg; I87.2 Venous insufficiency (chronic) (peripheral); R62.7 Adult failure to thrive; I10 Essential (primary) hypertension; Z95.1 Presence of aortocoronary bypass graft; Z95.0 Presence of cardiac pacemaker; Z79.899 Other long term (current) drug therapy; Z79.82 Long term (current) use of aspirin
CPT/HCPCS: 36415; 80053; 81003; 85025; 87070; 87075; 87077; 87147; 87186; 87205; 99283; A9270

== ENCOUNTER 2022-11-05 15:35 | Emergency (ER) | payer MEDICARE ==
[~2022-11-05] VITALS: Ht 182.9 cm; Wt 83.5 kg
[2022-11-05 15:56] LABS: BASOPHILS ABSOLUTE AUTO 0.05 K/mm3 (0.00-0.23); BASOPHILS PERCENT AUTO 0 % (0-2); EOSINOPHILS ABSOLUTE AUTO 0.24 K/mm3 (0.00-0.68); EOSINOPHILS PERCENT AUTO 2 % (0-6); Hematocrit 41.2 % (37.0-53.0); Hemoglobin 13.6 g/dL (13.5-17.5); IMMATURE GRAN ABSOLUTE AUTO 0.06 K/mm3 (0.00-0.10); IMMATURE GRAN PERCENT AUTO 1 % (0-1); LYMPHOCYTES ABSOLUTE AUTO 0.92 K/mm3 (0.84-5.20); LYMPHOCYTES PERCENT AUTO 8 % (21-46); MONOCYTES ABSOLUTE AUTO 1.12 K/mm3 (0.16-1.47); MONOCYTES PERCENT AUTO 10 % (4-13); Mean Corpuscular HGB 29.3 pg (26.0-34.0); Mean Corpuscular Volume 89 fL (80-100); Mean Platelet Volume 9.4 fL (9.1-12.4); NEUTROPHILS ABSOLUTE AUTO 9.38 K/mm3 (1.96-9.15); NEUTROPHILS PERCENT AUTO 80 % (41-73); Platelet Count 215 K/mm3 (150-400); RDW Coefficient Variation 16.9 % (11.7-14.2); RDW Standard Deviation 54.5 fL (35.1-46.3); Red Blood Cell Count 4.64 M/mm3 (4.30-5.90); White Blood Cell Count 11.77 K/mm3 (4.00-11.30)
[2022-11-05 16:28] LABS: Albumin, Blood 2.3 g/dL (3.4-5.0); Albumin/Globulin Ratio 0.6 (0.8-1.8); Bilirubin, Total 0.9 mg/dL (0.1-1.0); Calcium, Blood 8.3 mg/dL (8.5-10.1); Creatinine, Blood 1.77 mg/dL (0.60-1.20); Globulin, Blood 4.1 g/dL (2.2-4.0); Total Protein, Blood 6.4 g/dL (6.4-8.2)
[2022-11-05 19:05] LABS: Calcium, Ionized (POC) 1.09 mmol/L (1.10-1.46); Chloride (POC) 105 mmol/L (98-108); Creatinine (POC) 1.9 mg/dL (0.8-1.3); Glucose (ISTAT POC) 89 mg/dL (70-99); Hemoglobin (POC) 12.9 g/dL (13.5-17.5); Sodium (POC) 135 mmol/L (135-148); Total CO2 (POC) 21 mmol/L (21-32)
[2022-11-05] MEDS ORDERED: DOXY100 PO (19:24)
== END 2022-11-05 20:24 | disposition home or self-care (01) ==
LOC: ER 15:35
PROVIDERS: Student in an Organized Health Care Education/Training Program
DX: E87.5 Hyperkalemia (principal); J90 Pleural effusion, not elsewhere classified; I50.22 Chronic systolic (congestive) heart failure; I25.10 Atherosclerotic heart disease of native coronary artery without angina pectoris; L03.115 Cellulitis of right lower limb; E83.51 Hypocalcemia; N18.9 Chronic kidney disease, unspecified; Z79.82 Long term (current) use of aspirin; Z79.899 Other long term (current) drug therapy; Z95.0 Presence of cardiac pacemaker; Z95.1 Presence of aortocoronary bypass graft; Z96.653 Presence of artificial knee joint, bilateral
CPT/HCPCS: 71046; 73660; 80047; 80053; 83735; 83880; 84484; 85014; 85025; 93005; 93010; 94644; 94664; 96374; 96375; 99285-25; A9270; J1815; J1940; J7799

== ENCOUNTER → 2022-11-23 | Outpatient (CLI) | payer MEDICARE ==
[~2022-11-23] MED LIST changes: +DOXY100 PO
[2022-11-23 15:04] LABS: Bun/Creatinine Ratio 38.8 (12.0-20.0); Calcium, Blood 8.5 mg/dL (8.5-10.1); Creatinine, Blood 1.47 mg/dL (0.60-1.20); Potassium, Blood 5.1 mmol/L (3.5-5.5)
== END | disposition home or self-care (01) ==
LOC: LAB SHORT 10:50 → LAB 10:50
PROVIDERS: Legal Medicine
DX: I12.9 Hypertensive chronic kidney disease with stage 1 through stage 4 chronic kidney disease, or unspecified chronic kidney disease (principal); N18.9 Chronic kidney disease, unspecified
CPT/HCPCS: 80048

== ENCOUNTER 2022-12-13 20:32 | Inpatient (IN) | payer MEDICARE ==
[~2022-12-13] VITALS: Ht 182.9 cm; Wt 92.3 kg
[2022-12-13 21:17] LABS: Base Excess Venous 4.3 mmol/L; Bicarbonate Venous 26.1 mmol/L (24.0-30.0); PCO2 Venous 62.6 mmHg (38-42)
[2022-12-13 21:21] LABS: BASOPHILS ABSOLUTE AUTO 0.04 K/mm3 (0.00-0.23); BASOPHILS PERCENT AUTO 1 % (0-2); EOSINOPHILS ABSOLUTE AUTO 0.17 K/mm3 (0.00-0.68); EOSINOPHILS PERCENT AUTO 2 % (0-6); Hematocrit 40.9 % (37.0-53.0); Hemoglobin 12.9 g/dL (13.5-17.5); IMMATURE GRAN ABSOLUTE AUTO 0.02 K/mm3 (0.00-0.10); IMMATURE GRAN PERCENT AUTO 0 % (0-1); LYMPHOCYTES ABSOLUTE AUTO 0.84 K/mm3 (0.84-5.20); LYMPHOCYTES PERCENT AUTO 11 % (21-46); MONOCYTES ABSOLUTE AUTO 0.87 K/mm3 (0.16-1.47); MONOCYTES PERCENT AUTO 12 % (4-13); Mean Corpuscular HGB 26.3 pg (26.0-34.0); Mean Corpuscular HGB Conc 31.5 g/dL (31.5-36.5); Mean Corpuscular Volume 84 fL (80-100); Mean Platelet Volume 9.5 fL (9.1-12.4); NEUTROPHILS ABSOLUTE AUTO 5.52 K/mm3 (1.96-9.15); NEUTROPHILS PERCENT AUTO 74 % (41-73); Platelet Count 159 K/mm3 (150-400); RDW Coefficient Variation 16.9 % (11.7-14.2); RDW Standard Deviation 51.8 fL (35.1-46.3); White Blood Cell Count 7.46 K/mm3 (4.00-11.30)
[2022-12-13] MEDS ORDERED: CEPH500 PO (21:31)
[2022-12-13] MEDS ORDERED: PLAVIX75 MG PO (21:31)
[2022-12-13] MEDS ORDERED: [UNRECOGNIZED DRUG - CODE] PO (21:32)
[2022-12-13] MEDS ORDERED: TEMAZEPAM1511 PO (21:32)
[2022-12-13 21:56] LABS: Albumin, Blood 2.1 g/dL (3.4-5.0); Albumin/Globulin Ratio 0.6 (0.8-1.8); Bilirubin, Total 0.9 mg/dL (0.1-1.0); Bun/Creatinine Ratio 33.9 (12.0-20.0); Calcium, Blood 8.3 mg/dL (8.5-10.1); Creatinine, Blood 1.65 mg/dL (0.60-1.20); Globulin, Blood 3.4 g/dL (2.2-4.0); Potassium, Blood 4.4 mmol/L (3.5-5.5); Total Protein, Blood 5.5 g/dL (6.4-8.2)
[2022-12-13 22:11] LABS: C-REACTIVE PROTEIN, EXT RANGE 0.976 mg/dL (0.000-0.300)
[2022-12-14 00:19] LABS: Base Excess Venous 3.3 mmol/L; Bicarbonate Venous 26.1 mmol/L (24.0-30.0); PCO2 Venous 55.8 mmHg (38-42); pH Blood Venous 7.33 (7.34-7.37)
[2022-12-14 01:15] LABS: Source, Urine Straight Cath
[2022-12-14 01:39] LABS: Bilirubin, Urine Neg (Neg); Blood, Urine Neg (Neg); Glucose Qualitative, Urine Neg (Neg); Ketones, Urine Neg (Neg); Leukocyte Esterase, Urine Neg (Neg); Nitrite, Urine Neg (Neg); Protein, Urine Neg (Neg); Urobilinogen, Urine NORM (Normal)
[2022-12-14 01:41] LABS: Appearance, Urine Clear (Clear); Color, Urine Pale Yellow (P-Yellow)
[2022-12-14] MEDS ORDERED: ENTRESTO 24 MG1 EACH PO (01:47)
--- NOTE | 2022-12-14 02:58 | NUR ---
ADMIT NOTE HANDOFF RECEIVED FROM OUTSIDE SALES CONSULTANT BELEM. PT ARRIVED TO FLOOR VIA GURNEY. PT ARRIVED SOILED FROM INCONTINENT BM. NEW ATTENDS IN PLACE. NUMEROUS SMALL WOUNDS ON BLE. BLE ARE NOTABLY RED IN COLORATION FROM BILATERAL KNEES DOWN. PHOTOS IN CHART. PT ON 2 LPM O2. PHYSICIAN GAVE VERBAL ORDERS FOR VINSON FOR STRICT I&O'S AND TELEMETRY. PT HAS ONLY SAID A FEW WORDS SINCE ARRIVAL. HE IS AMS. IS AWARE OF HYPOTENSION
[2022-12-14 04:07] LABS: Source, Urine Foley catheter
[2022-12-14 04:19] LABS: Bilirubin, Urine Neg (Neg); Blood, Urine 3+ (Neg); Glucose Qualitative, Urine Neg (Neg); Ketones, Urine Neg (Neg); Leukocyte Esterase, Urine Neg (Neg); Nitrite, Urine Neg (Neg); Protein, Urine Neg (Neg); Urobilinogen, Urine NORM (Normal)
[2022-12-14 04:24] LABS: Appearance, Urine Clear (Clear); Color, Urine Pale Yellow (P-Yellow)
[2022-12-14 04:33] LABS: Bacteria Not Seen /hpf; Red Blood Cells, Urine 0-2 /hpf (0-2); Squamous Epithelial Cells Not Seen /hpf (Few); White Blood Cells, Urine 0-2 /hpf (0-5)
--- NOTE | 2022-12-14 05:08 | NUR ---
SHIFT SUMMARY ADMITTED FOR RESPIRATORY DISTRESS/SBO. DNR CODE. VINSON IN PLACE FOR STRICT I&O'S, PLAN IS TO [facility]URESE. HOWEVER, HYPOTENSION AND BRADYCARDIA IS NOTED. TELEMETRY: PACED @ 62 BPM. IV ANTIB RX AND LASIX GIVEN IN ER. PT INCONTINENT OF BOWEL ON ARRIVAL TO FLOOR. BUE & BLE EDEMA NOTED. BLE WOUNDS AND REDNESS, PICTURES IN CHART. YEAST IN ZAID AREA. DECREASE LOC, ONLY A FEW MINIMAL RESPONSES SINCE ADMIT. 2 LPM O2. UA NEGATIVE FOR UTI. FROM INTERMEDIATE IN ELROSA.
[2022-12-14 05:22] LABS: Hematocrit 38.7 % (37.0-53.0); Hemoglobin 12.2 g/dL (13.5-17.5)
[2022-12-14 06:46] LABS: Albumin, Blood 1.8 g/dL (3.4-5.0); Albumin/Globulin Ratio 0.6 (0.8-1.8); Bilirubin, Total 0.7 mg/dL (0.1-1.0); Bun/Creatinine Ratio 35.7 (12.0-20.0); Calcium, Blood 8.1 mg/dL (8.5-10.1); Creatinine, Blood 1.57 mg/dL (0.60-1.20); Globulin, Blood 3.2 g/dL (2.2-4.0)
--- NOTE | 2022-12-14 12:47 | NUR ---
Care Conference: Met with pt's daughter this morning. Pt lives alone since his , and his health has continued to decline. He has a hx significant for CHF, BPH, CAD, Aortic Stenosis, A Fib, severe pulmonary HTN. The pt has some assistance from family and CG's, but not enough for the increase in all ADL's. He is chairbound, with both cellulitis in BLE and HF exacerbation. He is seen regularly by [facility], and [facility] the HH state he is and has been a good candidate for comfort care/hospice but has declined each time. Plan to discuss with pt's grandson, as he is also involved in the decision making process.
--- NOTE | 2022-12-14 19:22 | NUR ---
SHIFT SUMMARY PT IS ALERT AND ORIENTED X4 WITH FEW EPISODES OF CONFUSION. 2L NC. PT HAS +4 PITTING GENERALIZED EDEMA.
[2022-12-15 05:26] LABS: Hematocrit 36.8 % (37.0-53.0); Hemoglobin 11.7 g/dL (13.5-17.5); Mean Corpuscular HGB 26.4 pg (26.0-34.0); Mean Corpuscular HGB Conc 31.8 g/dL (31.5-36.5); Mean Corpuscular Volume 83 fL (80-100); Mean Platelet Volume 10.1 fL (9.1-12.4); Platelet Count 158 K/mm3 (150-400); RDW Coefficient Variation 16.8 % (11.7-14.2); RDW Standard Deviation 50.6 fL (35.1-46.3); Red Blood Cell Count 4.44 M/mm3 (4.30-5.90); White Blood Cell Count 13.18 K/mm3 (4.00-11.30)
[2022-12-15 05:44] LABS: Bun/Creatinine Ratio 33.3 (12.0-20.0); Calcium, Blood 8.1 mg/dL (8.5-10.1); Creatinine, Blood 1.8 mg/dL (0.60-1.20); Potassium, Blood 4.4 mmol/L (3.5-5.5)
--- NOTE | 2022-12-15 06:21 | NUR ---
MAX ASSIST TO TRANSFER TO CHAIR AND BACK TO BED. AFTER TRANSFER BACK TO BED NOSE BLEED OCCURRED. UNSURE IF NOSE WAS BUMPED OR NOT. ADDED HUMIDIFIER TO O2 NC, CONTINUING TO MONITOR, SLOW BLEED FOR MORE THAN AN HOUR. KAREL IN PLACE FOR STRICT I&O, PATENT. PT STATES HE WILL BE GOING HOME TODAY.
--- NOTE | 2022-12-15 14:18 | NUR ---
Met with pt and his daughter Radha today to discuss pt's overall condition, along with his wishes. He has made it clear he would like to go home, and "sooner than later" he says often. His daughter has been hesitant to move forward with comfort care or hospice without as she says, "giving him a chance to improve first, not just give up on him" in relation to his cardiac function, circulation issues, and pleural effusions. After speaking to Dr. Tucker as requested, daughter Radha has decided along with pt that hospice is an appropriate next step, as pt is not inerested in rehab, assisted living or other facility. Plan: dishcarge likely on Sunday with hospice.
--- NOTE | 2022-12-15 14:30 | NUR ---
Met with Saurabh this afternoon. He is sitting up in the bedside chair. Staff are getting ready to give him a bed bath. Saurabh reports he has had "a rough week." He did not elaborate when asked what made his week rough. Chart reveiwed. Plan is for him to be going home with hospice upon discharge. Emotional support given. PC to continue to follow for symptom managemnt and emotional support prn.
--- NOTE | 2022-12-15 16:44 | NUR ---
SHIFT SUMMARY PT IS ALERT AND ORIENTED X4. NO CONFUSION THIS SHIFT. CONTINUED EPISTAXIS. MD AWARE. NO ACUTE CHANGES THIS SHIFT.
--- NOTE | 2022-12-16 15:59 | NUR ---
Spoke with SYLVAIN Pinto, and Dr Tucker prior to visiting with Pt. Plan is for Pt to D/C home with hospice services. Pt and family was offered comfort care here at hospital. Pt and family denies need for comfort care and would like just hospice. Pt sitting in recliner chair with pillows proping him from the back and the sides. Pt denies pain stating "just a little sore". Pt denies need for pain medication. Offered gentle voice and supportive visit. Pt expresses appreciation and report no concerns at this time. Palliative Care will remain available
--- NOTE | 2022-12-16 17:57 | NUR ---
DAYSHIFT SUMMARY Patient AOx3, calls appropriately. This morning he pulled out the rhinorocket, dried blood noted, but no actvie bleeding. Patient worked with therapy today, pt recommended mechanical lift for transfers. Patient was transfered to [facility], had a BM. Patient refused to lay down in bed, sitting in recliner all day. Egg crate in place, mepilex on coccyx CDI. Plan is to work on discharging home with hospice. Vitals stable, will continue plan of care.
[2022-12-17 05:39] LABS: Hematocrit 38.6 % (37.0-53.0); Hemoglobin 12.5 g/dL (13.5-17.5); Mean Corpuscular HGB 26.7 pg (26.0-34.0); Mean Corpuscular HGB Conc 32.4 g/dL (31.5-36.5); Mean Corpuscular Volume 82 fL (80-100); Mean Platelet Volume 9.9 fL (9.1-12.4); Platelet Count 160 K/mm3 (150-400); RDW Coefficient Variation 17.9 % (11.7-14.2); RDW Standard Deviation 52.3 fL (35.1-46.3); Red Blood Cell Count 4.69 M/mm3 (4.30-5.90); White Blood Cell Count 10.35 K/mm3 (4.00-11.30)
[2022-12-17 06:08] LABS: Bun/Creatinine Ratio 44.4 (12.0-20.0); Calcium, Blood 8.4 mg/dL (8.5-10.1); Creatinine, Blood 1.71 mg/dL (0.60-1.20)
--- NOTE | 2022-12-17 15:28 | NUR ---
SHIFT SUMMARY PT AWAKE DURING SHIFT REPORT, SITTING IN CHAIR AT BS. PT TO D/C HOME ON HOSPICE TOMORROW. DR PRASAD IN TO SEE PT THIS AM; NEW ORDERS PLACED. TELE MX D/C'D. BOWEL CARE GIVEN PER EMAR AND PT REQUEST. PT TO BSC X2 THIS SHIFT FOR BM'S. PT JUST BACK TO BED, RECEIVING BED BATH AND LINEN CHANGE. DRSG TO COCCYX CHANGED FOR PREVENTIVE, PER PT REQUEST. PT'S DAUGHTER IN EARLIER TODAY TO VISIT FOR A WHILE. EDU GIVEN TO DAUGHTER, PER REQUEST, REGARDING PT'S DX'S IN ORDER TO EDU FAMILY. VINSON TO GRAVITY; PATENT. PT HAS BEEN PLEASANT AND CO-OP WITH CARE. ABLE TO MAKE NEEDS KNOWN.
--- NOTE | 2022-12-18 05:48 | NUR ---
A/OX2-3; SELF AND PLACE THIS SHIFT. CALM AND COOPERATIVE. HYPOTENSIVE. EXTREMETIES 2-3+ EDEMA. 1 XASSIST PIVOT TO BSC (PER REPORT. NOT OOB FOR THIS RN). VINSON PATENT. PLAN TO DC TO HOME WITH HOSPICE TODAY. TAKES PILLS WHOLE WITH WATER. SLEEP PROMOTED. BED ALARM SET. CALL LIGHT IN REACH; ENCOURAGED TO MAKE NEEDS KNOWN.
[2022-12-18 06:09] LABS: Bun/Creatinine Ratio 48.5 (12.0-20.0); Calcium, Blood 8.3 mg/dL (8.5-10.1); Creatinine, Blood 1.65 mg/dL (0.60-1.20)
[2022-12-18] MEDS ORDERED: SENN187 PO (11:26)
[2022-12-18] MEDS ORDERED: Norco 5-325 Ta1 EACH PO (11:27)
[2022-12-18] MEDS ORDERED: MELATONIN5 M1 PO (11:28)
[2022-12-18] MEDS ORDERED: MIRT15 PO (11:29)
[2022-12-18] MEDS ORDERED: MIRALAX17 GM PO (11:31)
--- NOTE | 2022-12-18 14:13 | NUR ---
PT DISCHARGED AND WAS TRANSPORTED HOME VIA WHEEL CHAIR TO GO ON HOSPICE. ALL PERSONAL BELONGINGS WERE COLLECTED AND PT'S DAUGHTER HAD DISCHARGE PAPERS REVIEWED WITH HER AND SHE VERBLIZED UNDERSTANDING. PT'S LEGS WERE WRAPPED PRIOR TO DISCHARGE AND HE HAD A PAIN PILL PER EMAR FOR BACK PAIN. NO DISTRESS NOTED.
== END 2022-12-18 12:00 | disposition hospice, home (50) | DRG 291 ==
LOC: ER 20:32 → MEDS 20:33
PROVIDERS: Family Medicine; Internal Medicine; Student in an Organized Health Care Education/Training Program; ADMIT Internal Medicine
PROC: 2Y41X5Z Packing of Nasal Region using Packing Material (ICD-10-PCS; principal; 2022-12-15)
DX: I13.0 Hypertensive heart and chronic kidney disease with heart failure and stage 1 through stage 4 chronic kidney disease, or unspecified chronic kidney disease (principal); I50.43 Acute on chronic combined systolic (congestive) and diastolic (congestive) heart failure; E87.29 Other acidosis; L03.116 Cellulitis of left lower limb; L03.115 Cellulitis of right lower limb; G93.40 Encephalopathy, unspecified; Z66 Do not resuscitate; Z51.5 Encounter for palliative care; N18.30 Chronic kidney disease, stage 3 unspecified; R04.0 Epistaxis; D63.1 Anemia in chronic kidney disease; E78.5 Hyperlipidemia, unspecified; N40.0 Benign prostatic hyperplasia without lower urinary tract symptoms; I25.10 Atherosclerotic heart disease of native coronary artery without angina pectoris; I48.91 Unspecified atrial fibrillation; I27.20 Pulmonary hypertension, unspecified; I35.0 Nonrheumatic aortic (valve) stenosis; F03.90 Unspecified dementia, unspecified severity, without behavioral disturbance, psychotic disturbance, mood disturbance, and anxiety; Z96.653 Presence of artificial knee joint, bilateral; Z95.1 Presence of aortocoronary bypass graft; Z98.890 Other specified postprocedural states; Z95.0 Presence of cardiac pacemaker; Z79.2 Long term (current) use of antibiotics; Z79.899 Other long term (current) drug therapy; Z79.82 Long term (current) use of aspirin
CPT/HCPCS: 36415; 70450; 71045; 80048; 80053; 81001; 81003; 82803; 82947; 83880; 84145; 85014; 85018; 85025; 85027; 85651; 86140; 93005; 93010; 94760; 96365; 96366; 96367; 96375; 97110; 97161; 99285-25; A9270; C8929; J1650; J1940; J3370; J7050; Q9957